=== PATIENT | male | born 1945 | race Caucasian/White ===

== ENCOUNTER → 2021-05-14 13:52 | Outpatient (REF) | payer MEDICARE, SELFPAY ==
--- NOTE | 2021-05-14 14:00 | CA_ITS ---
Transthoracic Echocardiogram Patient (Last, First, Middle): Bhupendra Beyer, Gender: Male Date of : 1945 Age: 75 Procedure Date: 05/14/2021 Procedure Type: Transthoracic Echocardiogram Location: OP Height: 177.8 cm Weight: 81.65 kg BSA: 2.00 m2 Heart Rate: bpm BP: 128 / 70 mmHg Assembling Inspector: Referring MD: Willy Grullon MD Symptoms: R55 PRE SYNCOPE I49.3 FREQUET PVCS, R63.4 WEIGHT LOSS Study Quality: Fair ECG Rhythm: Undetermined; possibly sinus with PACs, PVCs. Conclusions: - The left ventricular systolic function is mildly decreased. The calculated ejection fraction is 45% by biplane method. - No obvious valvular pathology seen on this study. Findings Left Ventricle Normal left ventricular cavity size. There is mildly increased left ventricular wall thickness. The left ventricular systolic function is mildly decreased. The calculated ejection fraction is 45% by biplane method. There is mild global hypokinesis. Diastolic function is indeterminate on the basis of available data. Right Ventricle Normal right ventricular cavity size and systolic function. Atria The left atrium is mildly dilated. The right atrium is normal in size. Aortic Valve There is a normal trileaflet aortic valve. There is no aortic valve stenosis. There is no aortic valve regurgitation. Mitral Valve The mitral valve appears normal. There is trace mitral valve regurgitation. There is no mitral valve stenosis. Pulmonic Valve The pulmonic valve was not well visualized. Tricuspid Valve Normal tricuspid valve structure. There is trace tricuspid valve regurgitation. The pulmonary artery systolic pressure is normal. Great Vessels The aortic annulus, sinuses of valsalva, and asc aorta are normal in size. Venous The inferior vena cava is normal in size and collapses greater than 50% with inspiration. Pericardium/Pleural There is a trivial pericardial effusion. Prior Study Comparison No prior study available for comparison. Recommendations, Care & Conclusions No obvious valvular pathology seen on this study. Measurements 2D Linear Measurements IVSd: 1.13 0.6-0.9/0.6-1.0 cm LVIDd: 5.33 3.9-5.3/4.2-5.9 cm LVIDd Index: 2.67 2.4-3.2/2.2-3.1 cm/m2 LVIDs: 3.90 2.0-3.6 cm LVPWd: 1.11 0.7-1.1 cm Ao Root: 3.30 2.1-3.5 cm LA Diam: 4.60 2.7-3.8/3.0-4.0 cm LAIDs Index: 2.30 1.5-2.3 cm/m2 LV Mass: 293.67 67-162/88-224 g LV Mass Index: 146.84 43-95/49-115 g/m2 LVOT Diam: 2.30 3.0+(-)1.3 cm 2D Systolic Function EF 4C: 45.50 >55% EF 2C: 44.50 >55% EF BiP: 45.20 >55% Mitral Valve MV Pk E: 0.57 MV PK A: 0.86 MV Decel Time: 377.00 E/A: 0.70 E'Lateral: 5.77 E'Medial: 5.22 E/E' Med: 10.80 E/E' Lat: 9.80 PHT: 110.00 MVA PHT: 2.00 Decel [place]: 1.50 Aortic Valve AoV Pk Justin: 1.36 AoV Mn Justin: 0.87 AoV VTI: 0.33 AoV Pk Grad: 7.00 Aov Mn Grad: 4.00 DOYLE Cont.VTI: 2.71 LVOT LVOT Pk Justin: 0.68 LVOT Mn Justin: 0.45 LVOT VTI: 0.21 LVOT Pk Grad: 2.00 LVOT Mn Grad: 1.00 LVOT Diam: 2.30 LVOT Area: 4.15 Diastolic Function MV Pk E: 0.57 MV Pk A: 0.86 E/A: 0.70 E'Medial: 5.22 E/E' Med: 10.80 E' Laterial: 5.77 E/E' Lat: 9.80 Right Ventricle TAPSE (mm): 25.00 TVS' Justin: 15.00 Tricuspid Valve TR Pk Justin: 1.60 TR Pk Grad: 10.00 RA Press: 3.00 RVSP: 13.00 Great Vessels Aorta Ao Root-2D: 3.30 2.0-3.7 cm Ao Asc: 3.50 2.1-3.4 cm Pulmonary Valve PV Pk Justin: 1.06 Peak PV Grad: 4.00 Updated in Other Vendor System with Status of Final Yao Etienne MD electronically signed on 05/14/2021 5:12:48 PM with status of Final
== END ==
LOC: HO.CARD 13:52
PROVIDERS: PCP Internal Medicine; Visit Provider Internal Medicine
DX: R55 Syncope and collapse (principal); I49.3 Ventricular premature depolarization; R63.4 Abnormal weight loss
CPT/HCPCS: 93306